=== PATIENT | female | born 1955 | race Asian ===

== ENCOUNTER 2019-09-14 00:58 | Emergency (ER) | payer BC ==
[~2019-09-14] VITALS: Ht 162.6 cm; Wt 42.2 kg
[2019-09-14 01:05] VITALS: Ht 162.6 cm; Wt 42.2 kg
[2019-09-14 03:34] VITALS: BP 100/64
== END 2019-09-14 03:33 | disposition home or self-care (01) ==
LOC: ED 00:58
DX: S00.03XA Contusion of scalp, initial encounter (principal); W18.39XA Other fall on same level, initial encounter; Y93.89 Activity, other specified; Y92.89 Other specified places as the place of occurrence of the external cause; Y99.8 Other external cause status